=== PATIENT | male | born 1960 | race Asian ===

== ENCOUNTER 2016-07-31 04:31 | Emergency (ER) | payer SELFPAY ==
[~2016-07-31] VITALS: Ht 182.9 cm; Wt 100.0 kg
[~2016-07-31 04:31] MED LIST: ALLO100T PO; VIC PO
[2016-07-31 04:41] VITALS: BP 144/98
[2016-07-31] MEDS ORDERED: CEFTRIAXONE SODIUM 1 G/VIAL IM ONE (04:45)
[2016-07-31] MEDS ORDERED: LIDOCAINE HCL 1% 20ML VIAL (Pyxis) INJ MC ONE (04:45)
== END 2016-07-31 05:00 | disposition home or self-care (01) ==
LOC: ER 04:34
DX: J02.9 Acute pharyngitis, unspecified (principal); I10 Essential (primary) hypertension; I25.10 Atherosclerotic heart disease of native coronary artery without angina pectoris; F17.210 Nicotine dependence, cigarettes, uncomplicated; M10.9 Gout, unspecified; Z95.5 Presence of coronary angioplasty implant and graft
CPT/HCPCS: 99283

== ENCOUNTER 2017-04-02 05:14 | Inpatient (IN) | payer SELFPAY ==
[~2017-04-02] VITALS: Ht 182.9 cm; Wt 99.8 kg
[2017-04-02] MEDS ORDERED: FUROSEMIDE 40MG/4ML VIAL IV STA (06:27)
[2017-04-02] MEDS ORDERED: NITROGLYCERIN OINT 1GM/INCH UDPKT TD STA (06:27)
[2017-04-02 07:03] LABS: HEMATOCRIT. 51.4 % (42.0-52.0); HEMOGLOBIN. 17.3 g/dL (14.0-18.0); MEAN CORPUSCULAR HEMOGLOBIN 30.8 pg (28.0-32.0); MEAN CORPUSCULAR VOLUME 91.8 fL (80.0-94.0); RED CELL DISTRIBUTION WIDTH 14.1 % (11.6-14.6)
[2017-04-02 07:09] LABS: PROTHROMBIN TIME 10.7 sec (9.4-11.6)
[2017-04-02 07:13] LABS: CHLORIDE 109 mEq/L (98-107)
[2017-04-02] MEDS ORDERED: LEVOFLOXACIN 750MG PREMIX 150 ML IV ONE (07:15)
[2017-04-02 07:18] LABS: TROPONIN I <0.01 ng/mL ng/mL (0.00-0.04)
[2017-04-02] MEDS ORDERED: SODIUM CHLORIDE 0.9% 500 ML IV ONE (07:58)
[2017-04-02 08:26] LABS: PLATELET ESTIMATE NORMAL
[2017-04-02 08:27] LABS: MEAN PLATELET VOLUME 9.9 fl (7.4-10.4); PLATELET 149 x1000/uL (130-400)
[2017-04-02 12:30] VITALS: BP_SYST 101; BP_SYST 112; BP_DIAS 67; BP_DIAS 78
[2017-04-02 12:46] VITALS: BP 112/75
[2017-04-02] MEDS ORDERED: ONDANSETRON HCL 4MG/2ML VIAL IV PRN (13:00)
[2017-04-02] MEDS ORDERED: CLONIDINE 0.1MG TABLET PO PRN (13:00)
[2017-04-02] MEDS ORDERED: IPRATROPIUM/ALBUTEROL 0.5-3(2.5)MG/3ML NEB INH PRN (13:00)
[2017-04-02] MEDS ORDERED: DOCUSATE SODIUM 100MG CAPSULE PO PRN (13:00)
[2017-04-02] MEDS ORDERED: DIPHENHYDRAMINE 50MG/ML VIAL IV PRN (13:00)
[2017-04-02] MEDS ORDERED: NA PHOS,M-B/NA PHOS,DI-BA ENEMA 118ML PR PRN (13:00)
[2017-04-02] MEDS ORDERED: MAGNESIUM/ALUMINUM HYDROXIDE/SIMETHICONE 30ML UDC PO PRN (13:00)
[2017-04-02] MEDS ORDERED: GUAIFENESIN 200MG/10ML SUGAR FREE UDC PO PRN (13:00)
[2017-04-02] MEDS ORDERED: ACETAMINOPHEN 325MG TABLET PO PRN (13:00)
[2017-04-02] MEDS ORDERED: KETOROLAC 15MG/ML VIAL IV PRN (13:15)
[2017-04-02] MEDS: ASCORBIC ACID 500 MG TABLET PO SCH ×2 (14:53→21:26)
[2017-04-02] MEDS: PANTOPRAZOLE SODIUM 40 MG/VIAL IV SCH (14:53)
[2017-04-02] MEDS: ENOXAPARIN 40MG/0.4ML SYR SUBCUT SCH (14:53)
[2017-04-02] MEDS ORDERED: PRAS10TA6 PO (16:27)
[2017-04-02] MEDS ORDERED: FURO-151 PO (16:27)
[2017-04-02] MEDS ORDERED: COLC0.6T66 PO (16:27)
[2017-04-02] MEDS ORDERED: ATOR-2 PO (16:27)
[2017-04-02] MEDS ORDERED: ASPI-1159 PO (16:27)
[2017-04-02 16:39] VITALS: BP 121/74
[2017-04-02] MEDS ORDERED: PNEUMOCOCCAL 23-VAL P-SAC VAC 0.5 ML IM ONE (17:15)
[2017-04-02 17:22] LABS: *AMPHETAMINES SCREEN URINE PRESUMTIVE POSITIVE (NEGATIVE); *BARBITURATES SCREEN URINE NEGATIVE (NEGATIVE); *BENZODIAZEPINES SCREEN URINE NEGATIVE (NEGATIVE); *COCAINE SCREEN URINE NEGATIVE (NEGATIVE); METHADONE URINE SCREEN NEGATIVE (NEGATIVE)
[2017-04-02 17:23] LABS: CANNABINOID URINE SCREEN NEGATIVE (NEGATIVE); OPIATES URINE SCREEN NEGATIVE (NEGATIVE); PHENCYCLIDINE URINE SCREEN NEGATIVE (NEGATIVE)
[2017-04-02] MEDS: SPIRONOLACTONE 25MG TABLET PO SCH (18:09)
[2017-04-02] MEDS: FUROSEMIDE 100MG/10ML VIAL IVP SCH (18:09)
[2017-04-02 20:39] VITALS: BP 128/87
[2017-04-02] MEDS ORDERED: ZOLPIDEM TARTRATE 5MG TABLET PO PRN (21:00)
[2017-04-03 00:15] VITALS: BP 111/60
[2017-04-03 01:03] LABS: CREATINE KINASE MB FRACTION 4.6 ng/mL (0.5-3.6); TROPONIN I 0.04 ng/mL (0.00-0.04)
[2017-04-03 04:42] VITALS: BP 145/83
[2017-04-03] MEDS: FUROSEMIDE 100MG/10ML VIAL IVP SCH (06:31)
[2017-04-03] MEDS: SPIRONOLACTONE 25MG TABLET PO SCH (06:39)
[2017-04-03] MEDS ORDERED: LEVOFLOXACIN 750MG PREMIX 150 ML IV SCH (07:00)
[2017-04-03 08:00] VITALS: BP 111/72
[2017-04-03 08:08] LABS: CHLORIDE 105 mEq/L (98-107)
[2017-04-03] MEDS: PANTOPRAZOLE SODIUM 40 MG/VIAL IV SCH (09:30)
[2017-04-03] MEDS: ASCORBIC ACID 500 MG TABLET PO SCH (09:30)
[2017-04-03 12:00] VITALS: BP 107/72
[2017-04-03] MEDS: ENOXAPARIN 40MG/0.4ML SYR SUBCUT SCH (13:00)
[2017-04-03 13:17] VITALS: BP 112/77
== END 2017-04-03 15:30 | disposition home or self-care (01) | DRG 720 ==
LOC: ER 05:25 → 5WST 07:56 → EDBEDREQ 08:02 → ENRESERV 10:58
PROVIDERS: ADMIT Internal Medicine; ATTEND Internal Medicine
DX: A41.9 Sepsis, unspecified organism (principal); N17.9 Acute kidney failure, unspecified; I11.0 Hypertensive heart disease with heart failure; J18.9 Pneumonia, unspecified organism; I50.40 Unspecified combined systolic (congestive) and diastolic (congestive) heart failure; F15.10 Other stimulant abuse, uncomplicated; E78.00 Pure hypercholesterolemia, unspecified; M10.9 Gout, unspecified; K59.00 Constipation, unspecified; F17.210 Nicotine dependence, cigarettes, uncomplicated; I25.10 Atherosclerotic heart disease of native coronary artery without angina pectoris; I25.2 Old myocardial infarction; Z95.5 Presence of coronary angioplasty implant and graft; Z79.899 Other long term (current) drug therapy; Z71.51 Drug abuse counseling and surveillance of drug abuser
CPT/HCPCS: 36415; 71045; 80053; 80061; 80305; 82550; 82553; 83036; 83605; 83690; 83880; 84145; 84484; 85025; 85610; 87040; 93005; 93970; 96365; 96366; 96375; 99291; C9113; J1650; J1940; J1956; J7030; J7050

== ENCOUNTER 2019-03-10 14:19 | Inpatient (IN) | payer MEDICAID, OTHER ==
[~2019-03-10] VITALS: Ht 160 cm; Wt 94.3 kg
[~2019-03-10 14:19] MED LIST changes: -ALLO100T PO; +ASPI-1497 PO; +ATOR-2 PO; +COLC0.6T66 PO; +FURO-151 PO; +PRAS10TA6 PO; -VIC PO
[2019-03-10] MEDS ORDERED: NITROGLYCERIN OINT 1GM/INCH UDPKT TD ONE (15:00)
[2019-03-10] MEDS ORDERED: FUROSEMIDE 100MG/10ML VIAL IVP ONE (15:00)
[2019-03-10] MEDS ORDERED: ASPIRIN 81MG TABLET PO ONE (15:00)
[2019-03-10 15:31] LABS: BG BASE EXCESS -4.6 mmol/L (-2.0-2.0); BG CARBOXYHEMOGLOBIN 1.2 % (0.5-1.5); BG DEOXYHEMOGLOBIN 12.5 % (0.0-5.0); BG FRACTION INSPIRED OXYGEN 21; BG HCO3 ACT 17.2 mmol/L (22.0-26.0); BG METHEMOGLOBIN 0.1 % (0.0-1.5); BG OXYGEN SATURATION 87.3 % (92.0-98.5); BG OXYHEMOGLOBIN 86.2 % (94.0-97.0); BG PH 7.455 (7.350-7.450); BG PO2 51.2 mmHg (75.0-100.0); BG SAMPLE SITE RIGHT BRACHIAL; BG TOTAL HEMOGLOBIN 16.1 g/dL (12.0-18.0); BG VENT MODE ROOM AIR
[2019-03-10 15:52] LABS: BASOPHILS % 1.4 % (0.0-2.0); EOSINOPHILS % 1.6 % (0.0-5.0); HEMATOCRIT. 48.9 % (42.0-52.0); HEMOGLOBIN. 15.8 g/dL (14.0-18.0); LYMPHOCYTES % 13.3 % (20.0-50.0); MEAN CORPUSCULAR HEMOGLOBIN 30.8 pg (28.0-32.0); MEAN PLATELET VOLUME 10.5 fl (7.4-10.4); MONOCYTES % 11.2 % (2.0-8.0); NEUTROPHILS % 72.5 % (40.0-76.0); PLATELET 112 x1000/uL (130-400); RED BLOOD CELL COUNT 5.15 mill/uL (4.7-6.1); RED CELL DISTRIBUTION WIDTH 14.3 % (11.6-14.6)
[2019-03-10 15:56] LABS: CHLORIDE 114 mEq/L (98-107)
[2019-03-10 15:59] LABS: INR 1.3; PARTIAL THROMBOPLASTIN TIME 27.8 sec (23.4-31.0); PROTHROMBIN TIME 12.9 sec (9.6-11.0)
[2019-03-10] MEDS ORDERED: ONDANSETRON HCL 4MG/2ML INJ IV PRN (20:30)
[2019-03-10] MEDS ORDERED: DIPHENHYDRAMINE 50MG/ML VIAL IV PRN (20:30)
[2019-03-10] MEDS ORDERED: IPRATROPIUM/ALBUTEROL 0.5-3(2.5)MG/3ML NEB HHN PRN (20:30)
[2019-03-10] MEDS ORDERED: MAGNESIUM/ALUMINUM HYDROXIDE/SIMETHICONE 30ML UDC PO PRN (20:30)
[2019-03-10] MEDS ORDERED: NA PHOS,M-B/NA PHOS,DI-BA ENEMA 118ML PR PRN (20:30)
[2019-03-10] MEDS ORDERED: ACETAMINOPHEN 325MG TABLET PO PRN (20:30)
[2019-03-10] MEDS ORDERED: CLONIDINE 0.1MG TABLET PO PRN (20:30)
[2019-03-10] MEDS ORDERED: DOCUSATE SODIUM 100MG CAPSULE PO PRN (20:30)
[2019-03-10] MEDS ORDERED: ACETAMINOPHEN 650MG/20.3ML UDC GT PRN (20:30)
[2019-03-10] MEDS ORDERED: ACETAMINOPHEN 650MG SUPP PR PRN (20:30)
[2019-03-10] MEDS ORDERED: GUAIFENESIN 200MG/10ML SUGAR FREE UDC PO PRN (20:30)
[2019-03-10] MEDS: HYDROCODONE/ACETAMINOPHEN 10/325MG TABLET PO PRN (22:53)
[2019-03-11] VITALS (7 sets, daily range): BP systolic 103–143; BP diastolic 65–91
[2019-03-11 02:27] LABS: CREATINE KINASE MB FRACTION 4.6 ng/mL (0.5-3.6)
[2019-03-11] MEDS: SODIUM CHLORIDE 0.9% INJ 3ML FLUSH IVF SCH ×3 (06:55→21:41)
[2019-03-11 07:21] LABS: BASOPHILS % 1.3 % (0.0-2.0); EOSINOPHILS % 2.1 % (0.0-5.0); HEMOGLOBIN. 15.7 g/dL (14.0-18.0); LYMPHOCYTES % 18.6 % (20.0-50.0); MEAN CORPUSCULAR HEMOGLOBIN 31.4 pg (28.0-32.0); MONOCYTES % 10.2 % (2.0-8.0); NEUTROPHILS % 67.8 % (40.0-76.0); PLATELET 107 x1000/uL (130-400); RED CELL DISTRIBUTION WIDTH 14.3 % (11.6-14.6)
[2019-03-11 07:34] LABS: CHLORIDE 113 mEq/L (98-107)
[2019-03-11 07:49] LABS: CREATINE KINASE MB FRACTION 4.7 ng/mL (0.5-3.6)
[2019-03-11 07:57] LABS: LDL CHOLESTEROL 85 mg/dL (5-100)
[2019-03-11 07:58] LABS: HDL CHOLESTEROL 27 mg/dL (40-59)
[2019-03-11] MEDS ORDERED: ENOXAPARIN 40MG/0.4ML SYR SUBCUT SCH (09:00)
[2019-03-11] MEDS: AMLODIPINE 10MG TABLET PO SCH (10:03)
[2019-03-11] MEDS: ASPIRIN 81MG EC TABLET PO SCH (10:03)
[2019-03-11] MEDS: FUROSEMIDE 40MG/4ML VIAL IV SCH ×2 (10:03→17:18)
[2019-03-11 10:48] LABS: T4 FREE 1.78 ng/dL (0.76-1.46)
[2019-03-11] MEDS ORDERED: ENOXAPARIN 40MG/0.4ML SYR SUBCUT NR (13:30)
[2019-03-11] MEDS: PIPERACILLIN/TAZOBACTAM 2.25 G in DEXTROSE 5% WATER 50 ML IV SCH ×2 (17:18→23:03)
[2019-03-11] MEDS: ENOXAPARIN 80MG/0.8ML SYR SUBCUT SCH (21:40)
[2019-03-11] MEDS: HYDROCODONE/ACETAMINOPHEN 10/325MG TABLET PO PRN (22:18)
[2019-03-12 00:31] VITALS: BP 109/66
[2019-03-12 04:00] VITALS: BP 102/69
[2019-03-12] MEDS: SODIUM CHLORIDE 0.9% INJ 3ML FLUSH IVF SCH ×3 (05:20→21:23)
[2019-03-12 08:00] VITALS: BP 117/72
[2019-03-12] MEDS: PIPERACILLIN/TAZOBACTAM 2.25 G in DEXTROSE 5% WATER 50 ML IV SCH ×2 (08:51→16:59)
[2019-03-12] MEDS: FUROSEMIDE 40MG/4ML VIAL IV SCH ×2 (08:51→16:59)
[2019-03-12] MEDS: AMLODIPINE 10MG TABLET PO SCH (08:52)
[2019-03-12] MEDS: ASPIRIN 81MG EC TABLET PO SCH (08:52)
[2019-03-12] MEDS: ENOXAPARIN 80MG/0.8ML SYR SUBCUT SCH (08:53)
[2019-03-12 12:10] VITALS: BP 130/76
[2019-03-12] MEDS: COLCHICINE 0.6MG TABLET PO SCH ×2 (12:26→21:23)
[2019-03-12] MEDS: HYDROCODONE/ACETAMINOPHEN 10/325MG TABLET PO PRN (14:39)
[2019-03-12 16:30] VITALS: BP 100/64
[2019-03-12] MEDS: LOSARTAN POTASSIUM 50 MG TABLET PO SCH (17:01)
[2019-03-12 20:48] VITALS: BP 97/60
[2019-03-12] MEDS: CARVEDILOL 3.125 MG TABLET PO SCH (21:00)
[2019-03-12] MEDS: ENOXAPARIN 100MG/ML SYR SUBCUT SCH (21:24)
[2019-03-13] VITALS (10 sets, daily range): BP systolic 77–106; BP diastolic 43–67
[2019-03-13 00:31] LABS: BASOPHILS % 1.1 % (0.0-2.0); EOSINOPHILS % 0.8 % (0.0-5.0); HEMATOCRIT. 48.3 % (42.0-52.0); HEMOGLOBIN. 16.1 g/dL (14.0-18.0); LYMPHOCYTES % 13.7 % (20.0-50.0); MEAN CORPUSCULAR HEMOGLOBIN 30.9 pg (28.0-32.0); MEAN CORPUSCULAR VOLUME 92.6 fL (80.0-94.0); MEAN PLATELET VOLUME 10.6 fl (7.4-10.4); MONOCYTES % 10.7 % (2.0-8.0); NEUTROPHILS % 73.7 % (40.0-76.0); PLATELET 122 x1000/uL (130-400); RED BLOOD CELL COUNT 5.22 mill/uL (4.7-6.1); RED CELL DISTRIBUTION WIDTH 13.7 % (11.6-14.6)
[2019-03-13] MEDS: PIPERACILLIN/TAZOBACTAM 2.25 G in DEXTROSE 5% WATER 50 ML IV SCH ×3 (00:37→15:33)
[2019-03-13 00:43] LABS: CHLORIDE 103 mEq/L (98-107)
[2019-03-13] MEDS: SODIUM CHLORIDE 0.9% INJ 3ML FLUSH IVF SCH ×3 (05:34→21:38)
[2019-03-13 06:41] LABS: BASOPHILS % 0.7 % (0.0-2.0); HEMATOCRIT. 48.1 % (42.0-52.0); HEMOGLOBIN. 15.9 g/dL (14.0-18.0); LYMPHOCYTES % 14.9 % (20.0-50.0); MEAN CORPUSCULAR HEMOGLOBIN 30.7 pg (28.0-32.0); MEAN CORPUSCULAR VOLUME 93.1 fL (80.0-94.0); MEAN PLATELET VOLUME 11.1 fl (7.4-10.4); MONOCYTES % 12.9 % (2.0-8.0); NEUTROPHILS % 70.5 % (40.0-76.0); PLATELET 123 x1000/uL (130-400); RED BLOOD CELL COUNT 5.16 mill/uL (4.7-6.1); RED CELL DISTRIBUTION WIDTH 14.1 % (11.6-14.6)
[2019-03-13] MEDS: COLCHICINE 0.6MG TABLET PO SCH ×2 (08:10→21:38)
[2019-03-13] MEDS: ASPIRIN 81MG EC TABLET PO SCH (08:11)
[2019-03-13] MEDS: FUROSEMIDE 40MG/4ML VIAL IV SCH ×3 (08:12→09:00)
[2019-03-13] MEDS: CARVEDILOL 3.125 MG TABLET PO SCH (08:31)
[2019-03-13] MEDS: LOSARTAN POTASSIUM 50 MG TABLET PO SCH (08:33)
[2019-03-13] MEDS: AMLODIPINE 10MG TABLET PO SCH (08:33)
[2019-03-13] MEDS: ENOXAPARIN 100MG/ML SYR SUBCUT SCH ×2 (08:40→21:38)
[2019-03-13] MEDS ORDERED: POTASSIUM CHLORIDE 20MEQ TABLET SR PO NR (11:15)
[2019-03-13] MEDS ORDERED: COLC0.6T66 PO (12:05)
[2019-03-13] MEDS ORDERED: ASPI-1497 PO (12:05)
[2019-03-13] MEDS ORDERED: FURO-151 PO (12:05)
[2019-03-13] MEDS ORDERED: ATOR-2 PO (12:05)
[2019-03-13 12:24] LABS: BG BASE EXCESS 3.1 mmol/L (-2.0-2.0); BG DEOXYHEMOGLOBIN 4.2 % (0.0-5.0); BG FRACTION INSPIRED OXYGEN 28; BG HCO3 ACT 25.3 mmol/L (22.0-26.0); BG METHEMOGLOBIN 0.2 % (0.0-1.5); BG OXYGEN SATURATION 95.7 % (92.0-98.5); BG OXYHEMOGLOBIN 93.6 % (94.0-97.0); BG PCO2 32.1 mmHg (35.0-45.0); BG PH 7.515 (7.350-7.450); BG PO2 74.8 mmHg (75.0-100.0); BG SAMPLE SITE RIGHT RADIAL; BG TOTAL HEMOGLOBIN 15.8 g/dL (12.0-18.0); BG VENT MODE NASAL CANNULA
[2019-03-13 16:31] LABS: CLARITY URINE CLEAR (CLEAR); COLOR URINE DARK YELLOW (YELLOW); KETONES URINE NEGATIVE (NEGATIVE); LEUKOCYTE ESTERASE URINE NEGATIVE (NEGATIVE); NITRITE URINE NEGATIVE (NEGATIVE); OCCULT BLOOD URINE 2+ (NEGATIVE); PH URINE 6.5 (4.5-8.0); PROTEIN URINE TRACE (NEGATIVE); SPECIFIC GRAVITY URINE 1.024 (1.005-1.030)
[2019-03-14] MEDS: PIPERACILLIN/TAZOBACTAM 2.25 G in DEXTROSE 5% WATER 50 ML IV SCH ×2 (00:13→08:25)
[2019-03-14 00:29] VITALS: BP 99/51
[2019-03-14 04:00] VITALS: BP 96/55
[2019-03-14] MEDS: SODIUM CHLORIDE 0.9% INJ 3ML FLUSH IVF SCH (06:15)
[2019-03-14 08:00] VITALS: BP 100/50
[2019-03-14] MEDS: ASPIRIN 81MG EC TABLET PO SCH (08:25)
[2019-03-14] MEDS: ENOXAPARIN 100MG/ML SYR SUBCUT SCH (08:25)
[2019-03-14] MEDS: COLCHICINE 0.6MG TABLET PO SCH (08:25)
[2019-03-14 12:00] VITALS: BP 120/60
[2019-03-14 14:21] VITALS: BP 120/60
[2019-04-26] MEDS ORDERED: COR12 PO (10:12)
[2019-04-26] MEDS ORDERED: APIX2.5T PO (10:12)
[2019-06-09] MEDS ORDERED: LOSA50TA3 PO (12:04)
[2019-06-09] MEDS ORDERED: FURO-151 MT (12:04)
[2019-06-09] MEDS ORDERED: COR12 PO (12:04)
[2019-06-09] MEDS ORDERED: ATOR-2 PO (12:04)
[2019-06-09] MEDS ORDERED: POTA-79 MT (12:04)
[2019-06-09] MEDS ORDERED: APIX2.5T PO (12:04)
[2019-06-09] MEDS ORDERED: ASPI-1497 PO (12:04)
[2019-06-09] MEDS ORDERED: LOSA25TA26 MT (12:12)
[2019-06-09] MEDS ORDERED: AMI2 PO (16:14)
== END 2019-03-14 15:16 | disposition home or self-care (01) | DRG 194 ==
LOC: ER 14:19 → EDBEDREQ 18:56 → 6WST 19:39 → ENRESERV 21:04
PROVIDERS: ADMIT Family Medicine; ATTEND Family Medicine
DX: I11.0 Hypertensive heart disease with heart failure (principal); J96.01 Acute respiratory failure with hypoxia; G93.41 Metabolic encephalopathy; N17.9 Acute kidney failure, unspecified; I95.9 Hypotension, unspecified; J91.8 Pleural effusion in other conditions classified elsewhere; I48.92 Unspecified atrial flutter; L03.115 Cellulitis of right lower limb; I42.9 Cardiomyopathy, unspecified; I48.91 Unspecified atrial fibrillation; L03.116 Cellulitis of left lower limb; I50.43 Acute on chronic combined systolic (congestive) and diastolic (congestive) heart failure; E78.5 Hyperlipidemia, unspecified; I25.10 Atherosclerotic heart disease of native coronary artery without angina pectoris; I87.2 Venous insufficiency (chronic) (peripheral); S80.812A Abrasion, left lower leg, initial encounter; X58.XXXA Exposure to other specified factors, initial encounter; M10.9 Gout, unspecified; E78.00 Pure hypercholesterolemia, unspecified; E80.6 Other disorders of bilirubin metabolism; Z82.49 Family history of ischemic heart disease and other diseases of the circulatory system; Z87.891 Personal history of nicotine dependence; Z91.14 Patient's other noncompliance with medication regimen; Z95.5 Presence of coronary angioplasty implant and graft; Z79.82 Long term (current) use of aspirin; I25.2 Old myocardial infarction; Z79.899 Other long term (current) drug therapy; Z86.73 Personal history of transient ischemic attack (TIA), and cerebral infarction without residual deficits; Y93.89 Activity, other specified; Y92.89 Other specified places as the place of occurrence of the external cause; Y99.8 Other external cause status
CPT/HCPCS: 36415; 36600; 71045; 73610; 73630; 80048; 80053; 80061; 81003; 82375; 82550; 82553; 82805; 82962; 83036; 83605; 83735; 83880; 84145; 84439; 84443; 84484; 84550; 85025; 85379; 87070; 87804; 93005; 93306; 93923; 93970; 96374; 97162; 97530; 99285; J1650; J1940; J2543; J7060

== ENCOUNTER 2019-05-22 14:23 | Inpatient (IN) | payer MEDICAID, OTHER ==
[~2019-05-22] VITALS: Ht 182.9 cm; Wt 98.5 kg
[~2019-05-22 14:23] MED LIST changes: +APIX2.5T PO; -COLC0.6T66 PO; +COR12 PO; -PRAS10TA6 PO
[2019-05-22] MEDS ORDERED: FUROSEMIDE 40MG/4ML VIAL IV ONE (15:45)
[2019-05-22] MEDS ORDERED: ASPIRIN 81MG TABLET PO ONE (15:45)
[2019-05-22] MEDS ORDERED: NITROGLYCERIN 0.4MG TABLET SL SL PRN (15:45)
[2019-05-22 16:13] LABS: BASOPHILS % 0.5 % (0.0-2.0); EOSINOPHILS % 1.1 % (0.0-5.0); HEMATOCRIT. 48.4 % (42.0-52.0); HEMOGLOBIN. 15.8 g/dL (14.0-18.0); LYMPHOCYTES % 20.8 % (20.0-50.0); MEAN CORPUSCULAR HEMOGLOBIN 29.9 pg (28.0-32.0); MEAN CORPUSCULAR VOLUME 91.4 fL (80.0-94.0); MEAN PLATELET VOLUME 10.6 fl (7.4-10.4); MONOCYTES % 10.5 % (2.0-8.0); NEUTROPHILS % 67.1 % (40.0-76.0); PLATELET 110 x1000/uL (130-400); RED CELL DISTRIBUTION WIDTH 16.5 % (11.6-14.6)
[2019-05-22 16:16] LABS: CHLORIDE 108 mEq/L (98-107)
[2019-05-23 05:00] VITALS: BP 137/98
[2019-05-23] MEDS ORDERED: MAGNESIUM/ALUMINUM HYDROXIDE/SIMETHICONE 30ML UDC PO PRN (07:15)
[2019-05-23] MEDS ORDERED: CLONIDINE 0.1MG TABLET PO PRN (07:15)
[2019-05-23] MEDS ORDERED: ONDANSETRON HCL 4MG/2ML INJ IV PRN (07:15)
[2019-05-23] MEDS ORDERED: ACETAMINOPHEN 325MG TABLET PO PRN (07:15)
[2019-05-23 08:00] VITALS: BP 131/86
[2019-05-23] MEDS ORDERED: APIXABAN 5 MG TABLET PO SCH (09:00)
[2019-05-23] MEDS ORDERED: FUROSEMIDE 40MG/4ML VIAL IV SCH ×2 (09:00→17:15)
[2019-05-23] MEDS ORDERED: CARVEDILOL 6.25 MG TABLET PO SCH (09:00)
[2019-05-23 12:00] VITALS: BP 107/75
[2019-05-23 16:00] VITALS: BP 103/63
[2019-05-23 16:03] LABS: CREATINE KINASE MB FRACTION 4.8 ng/mL (0.5-3.6)
[2019-05-23 18:58] LABS: *AMPHETAMINES SCREEN URINE NEGATIVE (NEGATIVE); *BARBITURATES SCREEN URINE NEGATIVE (NEGATIVE); *BENZODIAZEPINES SCREEN URINE NEGATIVE (NEGATIVE); *COCAINE SCREEN URINE NEGATIVE (NEGATIVE); METHADONE URINE SCREEN NEGATIVE (NEGATIVE); OPIATES URINE SCREEN NEGATIVE (NEGATIVE)
[2019-05-23 18:59] LABS: CANNABINOID URINE SCREEN NEGATIVE (NEGATIVE); PHENCYCLIDINE URINE SCREEN NEGATIVE (NEGATIVE)
[2019-05-23 20:00] VITALS: BP 119/88
[2019-05-23] MEDS: CARVEDILOL 12.5MG TABLET PO SCH (20:33)
[2019-05-23] MEDS: ATORVASTATIN CALCIUM 40MG TABLET PO SCH (20:33)
[2019-05-23] MEDS: ENOXAPARIN 80MG/0.8ML SYR SUBCUT SCH (20:34)
[2019-05-23 22:15] VITALS: BP 102/60
[2019-05-24] VITALS (7 sets, daily range): BP systolic 85–125; BP diastolic 55–71
[2019-05-24 00:34] LABS: CREATINE KINASE 157 IU/L (39-308)
[2019-05-24 00:36] LABS: CREATINE KINASE MB FRACTION 4.6 ng/mL (0.5-3.6)
[2019-05-24] MEDS: MORPHINE SULFATE 2 MG/ML CPJ (NOT FOR IM USE) IV PRN (03:21)
[2019-05-24] MEDS: HYDROCODONE/ACETAMINOPHEN 5/325MG TABLET PO PRN (04:20)
[2019-05-24 05:52] LABS: BASOPHILS % 1.2 % (0.0-2.0); EOSINOPHILS % 1.9 % (0.0-5.0); HEMATOCRIT. 44.9 % (42.0-52.0); HEMOGLOBIN. 15.1 g/dL (14.0-18.0); INR 1.2; LYMPHOCYTES % 16.3 % (20.0-50.0); MEAN CORPUSCULAR HEMOGLOBIN 30.4 pg (28.0-32.0); MEAN CORPUSCULAR VOLUME 90.5 fL (80.0-94.0); MONOCYTES % 10.7 % (2.0-8.0); NEUTROPHILS % 69.9 % (40.0-76.0); PROTHROMBIN TIME 13.4 sec (9.6-11.0); RED BLOOD CELL COUNT 4.97 mill/uL (4.7-6.1); RED CELL DISTRIBUTION WIDTH 15.9 % (11.6-14.6)
[2019-05-24 05:58] LABS: CHLORIDE 108 mEq/L (98-107)
[2019-05-24 06:28] LABS: VITAMIN B12 SERUM 578 pg/mL (211-911)
[2019-05-24 07:24] LABS: MEAN PLATELET VOLUME 10.9 fl (7.4-10.4); PLATELET 97 x1000/uL (130-400)
[2019-05-24] MEDS: CARVEDILOL 12.5MG TABLET PO SCH (08:19)
[2019-05-24] MEDS: FUROSEMIDE 40MG/4ML VIAL IV SCH (10:13)
[2019-05-24] MEDS: ENOXAPARIN 80MG/0.8ML SYR SUBCUT SCH ×2 (10:14→20:59)
[2019-05-24] MEDS: CARVEDILOL 6.25 MG TABLET PO SCH (20:58)
[2019-05-24] MEDS: ATORVASTATIN CALCIUM 40MG TABLET PO SCH (20:58)
[2019-05-25] VITALS: BP 93/72
[2019-05-25 03:55] VITALS: BP 101/63
[2019-05-25 08:00] VITALS: BP 106/60
[2019-05-25] MEDS: ENOXAPARIN 80MG/0.8ML SYR SUBCUT SCH ×2 (08:06→21:44)
[2019-05-25] MEDS: FUROSEMIDE 40MG/4ML VIAL IV SCH (09:09)
[2019-05-25] MEDS: CARVEDILOL 6.25 MG TABLET PO SCH ×2 (09:09→21:42)
[2019-05-25] MEDS: MORPHINE SULFATE 2 MG/ML CPJ (NOT FOR IM USE) IV PRN ×3 (10:35→22:02)
[2019-05-25 12:00] VITALS: BP 100/55
[2019-05-25 16:00] VITALS: BP 106/73
[2019-05-25 20:00] VITALS: BP 122/62
[2019-05-25] MEDS: ATORVASTATIN CALCIUM 40MG TABLET PO SCH (21:42)
[2019-05-26] VITALS (8 sets, daily range): BP systolic 0–141; BP diastolic 60–80
[2019-05-26] MEDS: CARVEDILOL 6.25 MG TABLET PO SCH (09:19)
[2019-05-26] MEDS: FUROSEMIDE 40MG/4ML VIAL IV SCH (09:19)
[2019-05-26] MEDS: ENOXAPARIN 80MG/0.8ML SYR SUBCUT SCH ×2 (09:19→21:02)
[2019-05-26] MEDS: ASPIRIN 81MG TABLET PO SCH (11:30)
[2019-05-26] MEDS ORDERED: METOLAZONE 10MG TABLET PO NR (13:49)
[2019-05-26] MEDS ORDERED: FUROSEMIDE 100MG/10ML VIAL IVP NR (14:30)
[2019-05-26] MEDS: AMIODARONE HCL 200 MG TABLET PO SCH ×2 (15:40→20:50)
[2019-05-26] MEDS: HYDROCODONE/ACETAMINOPHEN 5/325MG TABLET PO PRN ×2 (17:16→20:50)
[2019-05-26] MEDS: ATORVASTATIN CALCIUM 40MG TABLET PO SCH (20:50)
[2019-05-26] MEDS: CARVEDILOL 3.125 MG TABLET PO SCH (20:51)
[2019-05-27] VITALS (7 sets, daily range): BP systolic 0–105; BP diastolic 46–72
[2019-05-27] MEDS: MORPHINE SULFATE 2 MG/ML CPJ (NOT FOR IM USE) IV PRN (02:14)
[2019-05-27] MEDS: HYDROCODONE/ACETAMINOPHEN 5/325MG TABLET PO PRN (05:32)
[2019-05-27] MEDS: ENOXAPARIN 80MG/0.8ML SYR SUBCUT SCH (09:00)
[2019-05-27] MEDS: AMIODARONE HCL 200 MG TABLET PO SCH ×2 (09:14→21:00)
[2019-05-27] MEDS: FUROSEMIDE 40MG/4ML VIAL IV SCH ×2 (09:14→17:02)
[2019-05-27] MEDS: CARVEDILOL 3.125 MG TABLET PO SCH ×2 (09:14→20:55)
[2019-05-27] MEDS: ASPIRIN 81MG TABLET PO SCH (09:29)
[2019-05-27 13:39] LABS: BASOPHILS % 0.4 % (0.0-2.0); EOSINOPHILS % 0.3 % (0.0-5.0); HEMATOCRIT. 44.2 % (42.0-52.0); HEMOGLOBIN. 14.7 g/dL (14.0-18.0); LYMPHOCYTES % 11.4 % (20.0-50.0); MEAN CORPUSCULAR HEMOGLOBIN 30.2 pg (28.0-32.0); MEAN CORPUSCULAR VOLUME 91.2 fL (80.0-94.0); MEAN PLATELET VOLUME 10.9 fl (7.4-10.4); MONOCYTES % 11.7 % (2.0-8.0); NEUTROPHILS % 76.2 % (40.0-76.0); PLATELET 76 x1000/uL (130-400); RED BLOOD CELL COUNT 4.85 mill/uL (4.7-6.1); RED CELL DISTRIBUTION WIDTH 16.5 % (11.6-14.6)
[2019-05-27] MEDS ORDERED: POTASSIUM CHLORIDE 20MEQ TABLET SR PO NR (14:15)
[2019-05-27] MEDS: ATORVASTATIN CALCIUM 40MG TABLET PO SCH (20:55)
[2019-05-28] VITALS: BP 93/63
[2019-05-28] MEDS: HYDROCODONE/ACETAMINOPHEN 5/325MG TABLET PO PRN (02:28)
[2019-05-28 04:00] VITALS: BP 81/50
[2019-05-28] MEDS: FUROSEMIDE 40MG/4ML VIAL IV SCH ×2 (07:15→17:15)
[2019-05-28 07:29] LABS: BASOPHILS % 0.5 % (0.0-2.0); EOSINOPHILS % 0.5 % (0.0-5.0); HEMATOCRIT. 40.2 % (42.0-52.0); HEMOGLOBIN. 13.5 g/dL (14.0-18.0); LYMPHOCYTES % 13.4 % (20.0-50.0); MEAN CORPUSCULAR HEMOGLOBIN 30.5 pg (28.0-32.0); MEAN CORPUSCULAR VOLUME 90.7 fL (80.0-94.0); MEAN PLATELET VOLUME 11.1 fl (7.4-10.4); MONOCYTES % 10.7 % (2.0-8.0); NEUTROPHILS % 74.9 % (40.0-76.0); PLATELET 69 x1000/uL (130-400); RED BLOOD CELL COUNT 4.43 mill/uL (4.7-6.1); RED CELL DISTRIBUTION WIDTH 16.3 % (11.6-14.6)
[2019-05-28 08:00] VITALS: BP 91/53
[2019-05-28] MEDS: CARVEDILOL 3.125 MG TABLET PO SCH ×2 (09:00→21:00)
[2019-05-28] MEDS: ASPIRIN 81MG TABLET PO SCH (09:19)
[2019-05-28] MEDS: POTASSIUM CHLORIDE 20MEQ TABLET SR PO SCH (09:19)
[2019-05-28] MEDS: AMIODARONE HCL 200 MG TABLET PO SCH ×2 (09:20→22:02)
[2019-05-28 12:00] VITALS: BP 88/63
[2019-05-28] MEDS ORDERED: COLCHICINE 0.6MG TABLET PO NR (12:15)
[2019-05-28] MEDS ORDERED: ALLOPURINOL 100 MG TABLET PO SCH (12:15)
[2019-05-28 16:00] VITALS: BP 89/58
[2019-05-28 20:00] VITALS: BP 96/62
[2019-05-28] MEDS: ATORVASTATIN CALCIUM 40MG TABLET PO SCH (22:02)
[2019-05-28] MEDS ORDERED: POTASSIUM CHLORIDE 20MEQ/PACKET PO SCH (22:15)
[2019-05-28] MEDS ORDERED: METOLAZONE 10MG TABLET PO SCH (22:15)
[2019-05-29] VITALS (7 sets, daily range): BP systolic 93–126; BP diastolic 41–78
[2019-05-29] MEDS: FUROSEMIDE 40MG/4ML VIAL IV SCH ×2 (06:55→17:40)
[2019-05-29 07:15] LABS: BASOPHILS % 1.1 % (0.0-2.0); EOSINOPHILS % 1.3 % (0.0-5.0); HEMATOCRIT. 44.1 % (42.0-52.0); HEMOGLOBIN. 14.6 g/dL (14.0-18.0); LYMPHOCYTES % 15.2 % (20.0-50.0); MEAN CORPUSCULAR HEMOGLOBIN 30.3 pg (28.0-32.0); MEAN CORPUSCULAR VOLUME 91.5 fL (80.0-94.0); MONOCYTES % 11.6 % (2.0-8.0); NEUTROPHILS % 70.8 % (40.0-76.0); PLATELET 74 x1000/uL (130-400); RED BLOOD CELL COUNT 4.82 mill/uL (4.7-6.1); RED CELL DISTRIBUTION WIDTH 16.4 % (11.6-14.6)
[2019-05-29] MEDS: POTASSIUM CHLORIDE 20MEQ TABLET SR PO SCH ×2 (09:53→17:40)
[2019-05-29] MEDS: ASPIRIN 81MG TABLET PO SCH (09:53)
[2019-05-29] MEDS: AMIODARONE HCL 200 MG TABLET PO SCH ×2 (09:53→21:00)
[2019-05-29] MEDS: CARVEDILOL 3.125 MG TABLET PO SCH ×2 (09:59→21:00)
[2019-05-29] MEDS ORDERED: POTASSIUM CHLORIDE 20MEQ TABLET SR PO NR (14:45)
[2019-05-29] MEDS: ATORVASTATIN CALCIUM 40MG TABLET PO SCH (21:10)
[2019-05-30] VITALS: BP 89/52
[2019-05-30 04:00] VITALS: BP 92/58
[2019-05-30] MEDS: FUROSEMIDE 40MG/4ML VIAL IV SCH (06:49)
[2019-05-30 07:04] LABS: BASOPHILS % 1.1 % (0.0-2.0); EOSINOPHILS % 3.1 % (0.0-5.0); HEMOGLOBIN. 14.4 g/dL (14.0-18.0); LYMPHOCYTES % 15.4 % (20.0-50.0); MEAN CORPUSCULAR HEMOGLOBIN 30.2 pg (28.0-32.0); MEAN CORPUSCULAR VOLUME 90.5 fL (80.0-94.0); MEAN PLATELET VOLUME 11.2 fl (7.4-10.4); MONOCYTES % 14.5 % (2.0-8.0); NEUTROPHILS % 65.9 % (40.0-76.0); PLATELET 76 x1000/uL (130-400); RED BLOOD CELL COUNT 4.75 mill/uL (4.7-6.1); RED CELL DISTRIBUTION WIDTH 16.1 % (11.6-14.6)
[2019-05-30 07:48] LABS: CHLORIDE 96 mEq/L (98-107)
[2019-05-30 08:00] VITALS: BP 97/68
[2019-05-30] MEDS: CARVEDILOL 3.125 MG TABLET PO SCH (08:20)
[2019-05-30] MEDS: POTASSIUM CHLORIDE 20MEQ TABLET SR PO SCH (08:21)
[2019-05-30] MEDS: ASPIRIN 81MG TABLET PO SCH (08:21)
[2019-05-30] MEDS: AMIODARONE HCL 200 MG TABLET PO SCH (08:21)
[2019-05-30] MEDS ORDERED: POTASSIUM CHLORIDE 20MEQ TABLET SR PO NR (10:40)
[2019-05-30 11:41] VITALS: BP 97/68
[2019-05-30 12:00] VITALS: BP 103/61
== END 2019-05-30 14:52 | disposition home or self-care (01) | DRG 194 ==
LOC: ER 14:23 → 5WST 17:52 → EDBEDREQTM 18:26 → EDBEDREQ 18:26 → ENRESERV 05-23 03:31
PROVIDERS: ADMIT Hospitalist; ATTEND Hospitalist
DX: I13.0 Hypertensive heart and chronic kidney disease with heart failure and stage 1 through stage 4 chronic kidney disease, or unspecified chronic kidney disease (principal); I47.2 Ventricular tachycardia; I95.9 Hypotension, unspecified; D68.59 Other primary thrombophilia; D69.6 Thrombocytopenia, unspecified; I48.3 Typical atrial flutter; C64.9 Malignant neoplasm of unspecified kidney, except renal pelvis; I48.91 Unspecified atrial fibrillation; I50.23 Acute on chronic systolic (congestive) heart failure; E78.5 Hyperlipidemia, unspecified; F17.210 Nicotine dependence, cigarettes, uncomplicated; I25.10 Atherosclerotic heart disease of native coronary artery without angina pectoris; I25.5 Ischemic cardiomyopathy; M10.9 Gout, unspecified; N18.9 Chronic kidney disease, unspecified; Z79.899 Other long term (current) drug therapy; Z85.528 Personal history of other malignant neoplasm of kidney; Z90.49 Acquired absence of other specified parts of digestive tract; Z90.5 Acquired absence of kidney; Z98.61 Coronary angioplasty status; Z79.82 Long term (current) use of aspirin
CPT/HCPCS: 36415; 71045; 71250; 80048; 80053; 80305; 82550; 82553; 82607; 83735; 83880; 84443; 84484; 85025; 93005; 93306; 93970; 97116; 97162; 97530; 99285; J1650; J1940; J2270

== ENCOUNTER 2020-01-16 12:27 | Inpatient (IN) | payer MEDICAID ==
[~2020-01-16] VITALS: Ht 185.4 cm; Wt 98.0 kg
[~2020-01-16 12:27] MED LIST changes: -COR12 PO; +FURO-151 MT; -FURO-151 PO; +POTA-79 MT
[2020-01-16] MEDS ORDERED: FENTANYL CITRATE/PF 50MCG/ML 5ML VIAL ONE (13:25)
[2020-01-16] MEDS ORDERED: LIDOCAINE HCL 1% 20ML VIAL (Pyxis) INJ ONE (13:26)
[2020-01-16] MEDS ORDERED: MIDAZOLAM HCL 5 MG/5 ML VIAL ONE (13:26)
[2020-01-16 14:42] LABS: HEMATOCRIT 43.1 % (42.0-52.0); HEMOGLOBIN 14.8 g/dL (14.0-18.0); MEAN CORPUSCULAR VOLUME 90.4 fL (80.0-94.0); RED BLOOD CELL COUNT 4.77 mill/uL (4.7-6.1); RED CELL DISTRIBUTION WIDTH 15.2 % (11.6-14.6)
[2020-01-16] MEDS ORDERED: MULT-1008 MT (14:51)
[2020-01-16 14:54] LABS: PARTIAL THROMBOPLASTIN TIME 28.6 sec (23.4-31.0); PROTHROMBIN TIME 10.3 sec (9.6-11.0)
[2020-01-16 14:55] LABS: PLATELET 141 x1000/uL (130-400)
[2020-01-16 17:30] VITALS: BP 149/92
[2020-01-16] MEDS ORDERED: ACETAMINOPHEN 325MG TABLET PO PRN (17:45)
[2020-01-16] MEDS ORDERED: ATROPINE SULFATE 1MG/10ML SYR IV PRN (17:45)
[2020-01-16 20:00] VITALS: BP 143/84
[2020-01-16] MEDS ORDERED: ATORVASTATIN CALCIUM 40MG TABLET PO SCH (21:00)
[2020-01-16 22:20] VITALS: BP 141/84
[2020-01-17] VITALS (9 sets, daily range): BP systolic 130–160; BP diastolic 32–93
[2020-01-17] MEDS ORDERED: FUROSEMIDE 40MG TABLET PO SCH (07:15)
[2020-01-17] MEDS ORDERED: ASPIRIN 81MG EC TABLET PO SCH (09:00)
[2020-01-17] MEDS ORDERED: APIXABAN 2.5 MG TABLET PO SCH (09:00)
[2020-01-17] MEDS ORDERED: POTASSIUM CHLORIDE 20MEQ TABLET SR PO SCH (09:00)
[2020-03-08] MEDS ORDERED: HYDR-4001 MT (17:12)
[2020-03-08] MEDS ORDERED: LOSA25TA3 PO (17:12)
[2020-03-08] MEDS ORDERED: AMLO5TAB88 PO (17:12)
[2020-03-08] MEDS ORDERED: AMOX-424 MT (17:18)
== END 2020-01-17 16:05 | disposition home or self-care (01) | DRG 192 ==
LOC: CCL 12:27 → 3WST 17:30
PROVIDERS: ADMIT Internal Medicine Clinical Cardiac Electrophysiology; ATTEND Internal Medicine Clinical Cardiac Electrophysiology
PROC: 4A023FZ Measurement of Cardiac Rhythm, Percutaneous Approach (ICD-10-PCS; principal; 2020-01-16)
PROC: 4A0234Z Measurement of Cardiac Electrical Activity, Percutaneous Approach (ICD-10-PCS; 2020-01-16)
DX: R55 Syncope and collapse (principal); I48.3 Typical atrial flutter; I25.5 Ischemic cardiomyopathy; I48.91 Unspecified atrial fibrillation; I25.10 Atherosclerotic heart disease of native coronary artery without angina pectoris; E78.5 Hyperlipidemia, unspecified; I13.0 Hypertensive heart and chronic kidney disease with heart failure and stage 1 through stage 4 chronic kidney disease, or unspecified chronic kidney disease; I50.22 Chronic systolic (congestive) heart failure; N18.30 Chronic kidney disease, stage 3 unspecified; Z20.828 Contact with and (suspected) exposure to other viral communicable diseases; Z98.61 Coronary angioplasty status; Z90.49 Acquired absence of other specified parts of digestive tract; Z87.891 Personal history of nicotine dependence; I25.2 Old myocardial infarction; Z90.5 Acquired absence of kidney; E87.8 Other disorders of electrolyte and fluid balance, not elsewhere classified
CPT/HCPCS: 36415; 80048; 85027; 87426; 93005; 93306; 93620; 93621; C1730; C1893; J1644; J2250; J3010; J3490

== ENCOUNTER 2021-03-14 21:32 | Inpatient (IN) | payer MEDICAID ==
[~2021-03-14] VITALS: Ht 172.7 cm; Wt 99.8 kg
[~2021-03-14 21:32] MED LIST changes: +AMLO5TAB88 PO; +AMOX-424 MT; +HYDR-4001 MT; +LOSA25TA3 PO; +MULT-1008 MT
[2021-03-14 22:41] LABS: BASOPHILS % 1.1 % (0.0-2.0); EOSINOPHILS % 1.9 % (0.0-5.0); HEMATOCRIT. 38.8 % (42.0-52.0); HEMOGLOBIN. 13.1 g/dL (14.0-18.0); LYMPHOCYTES % 9.3 % (20.0-50.0); MEAN CORPUSCULAR HEMOGLOBIN 29.8 pg (28.0-32.0); MEAN CORPUSCULAR VOLUME 88.4 fL (80.0-94.0); MEAN PLATELET VOLUME 8.4 fl (7.4-10.4); MONOCYTES % 11.7 % (2.0-8.0); PLATELET 205 x1000/uL (130-400); RED BLOOD CELL COUNT 4.39 mill/uL (4.7-6.1); RED CELL DISTRIBUTION WIDTH 15.1 % (11.6-14.6)
[2021-03-14 22:46] LABS: CHLORIDE 112 mEq/L (98-107)
[2021-03-15] MEDS ORDERED: VANCOMYCIN 1G PREMIX 200 ML IV ONE (01:15)
[2021-03-15] MEDS ORDERED: SODIUM CHLORIDE 0.9% 500 ML IV ONE (01:15)
[2021-03-15] MEDS ORDERED: PIPERACILLIN/TAZ 3.375G PREMIX 50 ML IV ONE (01:15)
[2021-03-15] MEDS ORDERED: KETOROLAC 30MG/ML VIAL IV ONE (02:15)
[2021-03-15] MEDS ORDERED: CARVEDILOL 3.125 MG TABLET PO ONE (03:00)
[2021-03-15] MEDS ORDERED: FUROSEMIDE 40MG/4ML VIAL IVP ONE (03:00)
[2021-03-15] MEDS ORDERED: APIXABAN 2.5 MG TABLET PO ONE (03:00)
[2021-03-15] MEDS ORDERED: LOSARTAN POTASSIUM 25 MG TABLET PO ONE (03:00)
[2021-03-15 10:00] VITALS: BP 134/71
[2021-03-15 11:13] VITALS: BP 134/71
[2021-03-15] MEDS ORDERED: ONDANSETRON HCL 4MG/2ML INJ IV PRN (11:15)
[2021-03-15] MEDS ORDERED: ACETAMINOPHEN 325MG TABLET PO PRN (11:15)
[2021-03-15] MEDS ORDERED: FUROSEMIDE 40MG/4ML VIAL IVP SCH (11:30)
[2021-03-15] MEDS ORDERED: CARV12.545 MT (11:33)
[2021-03-15] MEDS ORDERED: SACU1TAB MT (11:33)
[2021-03-15] MEDS ORDERED: AMIO150P5 IV (11:33)
[2021-03-15] MEDS ORDERED: MULT1TAB7 MT (11:33)
[2021-03-15] MEDS ORDERED: AMIO100T4 MT (11:33)
[2021-03-15 12:00] VITALS: BP 127/67
[2021-03-15] MEDS ORDERED: VANCOMYCIN 1GM PMX (XELLIA) 200 ML IV NR (13:00)
[2021-03-15] MEDS: HYDROCODONE/ACETAMINOPHEN 10/325MG TABLET PO PRN (13:16)
[2021-03-15] MEDS: LEVOFLOXACIN 500MG PREMIX 100 ML IV SCH (13:21)
[2021-03-15] MEDS: VANCOMYCIN 1.25GM PMX (XELLIA) 250 ML IV SCH (15:28)
[2021-03-15 16:00] VITALS: BP 129/73
[2021-03-15] MEDS: APIXABAN 2.5 MG TABLET PO SCH (16:25)
[2021-03-15] MEDS: CARVEDILOL 12.5MG TABLET PO SCH (16:25)
[2021-03-15 19:37] LABS: *AMPHETAMINES SCREEN URINE PRESUMTIVE POSITIVE (NEGATIVE); *BARBITURATES SCREEN URINE NEGATIVE (NEGATIVE); *COCAINE SCREEN URINE NEGATIVE (NEGATIVE); CANNABINOID URINE SCREEN NEGATIVE (NEGATIVE); OPIATES URINE SCREEN PRESUMTIVE POSITIVE (NEGATIVE); PHENCYCLIDINE URINE SCREEN NEGATIVE (NEGATIVE)
[2021-03-15 19:38] LABS: *BENZODIAZEPINES SCREEN URINE NEGATIVE (NEGATIVE); METHADONE URINE SCREEN NEGATIVE (NEGATIVE)
[2021-03-15 20:00] VITALS: BP 102/63
[2021-03-15] MEDS: ATORVASTATIN CALCIUM 40MG TABLET PO SCH (21:04)
[2021-03-16] VITALS: BP 107/57
[2021-03-16 04:00] VITALS: BP 101/50
[2021-03-16] MEDS: HYDROCODONE/ACETAMINOPHEN 10/325MG TABLET PO PRN ×2 (07:24→13:32)
[2021-03-16 08:00] VITALS: BP 113/62
[2021-03-16] MEDS: ASPIRIN 81MG TABLET PO SCH (08:24)
[2021-03-16] MEDS: POTASSIUM CHLORIDE 20MEQ TABLET SR PO SCH (08:24)
[2021-03-16] MEDS: APIXABAN 2.5 MG TABLET PO SCH ×2 (08:24→16:18)
[2021-03-16] MEDS: FUROSEMIDE 40MG TABLET PO SCH (08:24)
[2021-03-16] MEDS: AMIODARONE HCL 200 MG TABLET PO SCH (08:24)
[2021-03-16] MEDS: CARVEDILOL 12.5MG TABLET PO SCH ×2 (08:25→16:18)
[2021-03-16 12:00] VITALS: BP 101/56
[2021-03-16] MEDS: LEVOFLOXACIN 500MG PREMIX 100 ML IV SCH (13:31)
[2021-03-16] MEDS: VANCOMYCIN 1.25GM PMX (XELLIA) 250 ML IV SCH (15:47)
[2021-03-16 16:00] VITALS: BP 104/62
[2021-03-16] MEDS ORDERED: *PATIENT'S OWN MEDICATION STORAGE XX SCH (16:15)
[2021-03-16 20:00] VITALS: BP 103/60
[2021-03-16] MEDS: ATORVASTATIN CALCIUM 40MG TABLET PO SCH (20:14)
[2021-03-17] VITALS: BP 113/65
[2021-03-17 04:00] VITALS: BP 121/70
[2021-03-17 08:00] VITALS: BP 92/59
[2021-03-17] MEDS: POTASSIUM CHLORIDE 20MEQ TABLET SR PO SCH (08:42)
[2021-03-17] MEDS: ASPIRIN 81MG TABLET PO SCH (08:42)
[2021-03-17] MEDS: FUROSEMIDE 40MG TABLET PO SCH (08:43)
[2021-03-17] MEDS: APIXABAN 2.5 MG TABLET PO SCH ×2 (08:43→17:42)
[2021-03-17] MEDS: AMIODARONE HCL 200 MG TABLET PO SCH (08:43)
[2021-03-17] MEDS: CARVEDILOL 12.5MG TABLET PO SCH ×2 (08:43→17:42)
[2021-03-17] MEDS: HYDROCODONE/ACETAMINOPHEN 10/325MG TABLET PO PRN (08:59)
[2021-03-17 12:00] VITALS: BP 100/59
[2021-03-17] MEDS: LEVOFLOXACIN 500MG TABLET PO SCH (13:13)
[2021-03-17] MEDS ORDERED: IOHEXOL-350 100 ML BOTTLE ONE (13:32)
[2021-03-17] MEDS: VANCOMYCIN 1.25GM PMX (XELLIA) 250 ML IV SCH (15:00)
[2021-03-17 16:00] VITALS: BP 124/96
[2021-03-17] MEDS ORDERED: CLIN300C12 MT (17:09)
[2021-03-17 20:00] VITALS: BP 97/53
[2021-03-17] MEDS: ATORVASTATIN CALCIUM 40MG TABLET PO SCH (20:30)
[2021-03-18] VITALS: BP 116/56
[2021-03-18 04:00] VITALS: BP 97/52
[2021-03-18 08:00] VITALS: BP 115/61
[2021-03-18] MEDS: CARVEDILOL 12.5MG TABLET PO SCH (08:57)
[2021-03-18] MEDS: APIXABAN 2.5 MG TABLET PO SCH (08:57)
[2021-03-18] MEDS: ASPIRIN 81MG TABLET PO SCH (08:57)
[2021-03-18] MEDS: AMIODARONE HCL 200 MG TABLET PO SCH (08:57)
[2021-03-18] MEDS: POTASSIUM CHLORIDE 20MEQ TABLET SR PO SCH (08:58)
[2021-03-18] MEDS: FUROSEMIDE 40MG TABLET PO SCH (08:59)
[2021-03-18] MEDS: LEVOFLOXACIN 500MG TABLET PO SCH (11:45)
[2021-03-18 12:00] VITALS: BP 110/59
[2021-03-18 13:33] VITALS: BP 110/58
[2021-03-18] MEDS ORDERED: VANCOMYCIN 1GM PMX (XELLIA) 200 ML IV SCH (16:00)
== END 2021-03-18 14:50 | disposition home health service (06) | DRG 383 ==
LOC: ER 21:32 → MICUSO 03-15 03:42 → 8WST 03-15 09:40
PROVIDERS: ADMIT Internal Medicine; ATTEND Internal Medicine
DX: L03.115 Cellulitis of right lower limb (principal); N17.0 Acute kidney failure with tubular necrosis; J96.01 Acute respiratory failure with hypoxia; I50.9 Heart failure, unspecified; I13.0 Hypertensive heart and chronic kidney disease with heart failure and stage 1 through stage 4 chronic kidney disease, or unspecified chronic kidney disease; E44.0 Moderate protein-calorie malnutrition; E11.22 Type 2 diabetes mellitus with diabetic chronic kidney disease; E11.51 Type 2 diabetes mellitus with diabetic peripheral angiopathy without gangrene; E87.8 Other disorders of electrolyte and fluid balance, not elsewhere classified; E78.00 Pure hypercholesterolemia, unspecified; L03.116 Cellulitis of left lower limb; E66.9 Obesity, unspecified; N18.9 Chronic kidney disease, unspecified; Z20.822 Contact with and (suspected) exposure to COVID-19; Z79.899 Other long term (current) drug therapy; Z79.82 Long term (current) use of aspirin; I25.2 Old myocardial infarction; Z90.49 Acquired absence of other specified parts of digestive tract; Z82.49 Family history of ischemic heart disease and other diseases of the circulatory system; Z87.891 Personal history of nicotine dependence; Z68.33 Body mass index [BMI] 33.0-33.9, adult
CPT/HCPCS: 36415; 71045; 75635; 80048; 80053; 80202; 80305; 82962; 83880; 84484; 85025; 87426; 93005; 93923; 93970; 97022; 97162; 99285; A6261; J1885; J1940; J1956; J2543; J3370; J7040; Q9967

== ENCOUNTER 2021-12-30 20:00 | Emergency (ER) | payer MEDICAID ==
[~2021-12-30] VITALS: Ht 182.9 cm; Wt 101.0 kg
[~2021-12-30 20:00] MED LIST changes: +AMIO100T4 MT; -AMLO5TAB88 PO; -AMOX-424 MT; +CARV12.545 MT; +CLIN-194 MT; -HYDR-4001 MT; -LOSA25TA3 PO; -MULT-1008 MT; +MULT1TAB7 MT; +SACU1TAB MT
[2021-12-31] MEDS ORDERED: SODIUM CHLORIDE 0.9% 1000ML BAG (SEPSIS BOLUS) IV ONE
[2021-12-31 03:26] LABS: HEMATOCRIT. 39.7 % (42.0-52.0); HEMOGLOBIN. 13.3 g/dL (14.0-18.0); MEAN CORPUSCULAR HEMOGLOBIN 30.3 pg (28.0-32.0); MEAN CORPUSCULAR VOLUME 90.3 fL (80.0-94.0); MEAN PLATELET VOLUME 8.9 fl (7.4-10.4); PLATELET 138 x1000/uL (130-400); RED CELL DISTRIBUTION WIDTH 14.2 % (11.6-14.6)
[2021-12-31 03:36] LABS: CHLORIDE 115 mEq/L (98-107)
[2021-12-31 03:45] LABS: ETHANOL BLOOD < 10 mg/dL
[2021-12-31] MEDS ORDERED: CEFTRIAXONE 1 G PREMIX 50 ML IV ONE (05:00)
[2021-12-31 06:15] LABS: CLARITY URINE CLEAR (CLEAR); COLOR URINE YELLOW (YELLOW); KETONES URINE NEGATIVE (NEGATIVE); LEUKOCYTE ESTERASE URINE NEGATIVE (NEGATIVE); NITRITE URINE NEGATIVE (NEGATIVE); OCCULT BLOOD URINE NEGATIVE (NEGATIVE); PROTEIN URINE NEGATIVE (NEGATIVE); SPECIFIC GRAVITY URINE 1.014 (1.005-1.030); UROBILINOGEN URINE 0.2 E.U./dL (0.2-1.0)
[2021-12-31 06:31] VITALS: BP 93/47
[2021-12-31 07:26] LABS: *AMPHETAMINES SCREEN URINE NEGATIVE (NEGATIVE); *BARBITURATES SCREEN URINE NEGATIVE (NEGATIVE); *BENZODIAZEPINES SCREEN URINE NEGATIVE (NEGATIVE); *COCAINE SCREEN URINE NEGATIVE (NEGATIVE); CANNABINOID URINE SCREEN NEGATIVE (NEGATIVE); METHADONE URINE SCREEN NEGATIVE (NEGATIVE); OPIATES URINE SCREEN NEGATIVE (NEGATIVE); PHENCYCLIDINE URINE SCREEN NEGATIVE (NEGATIVE)
[2021-12-31 07:48] LABS: ATYPICAL LYMPHOCYTES 2; PLATELET ESTIMATE NORMAL
== END 2021-12-31 09:23 | disposition left against medical advice (07) ==
LOC: ER 20:14 → EDBEDREQ 12-31 07:09 → ER 12-31 09:23 → CANBEDREQ 12-31 21:27
DX: I95.9 Hypotension, unspecified (principal); E78.00 Pure hypercholesterolemia, unspecified; I10 Essential (primary) hypertension; I25.2 Old myocardial infarction; Z85.9 Personal history of malignant neoplasm, unspecified; Z79.82 Long term (current) use of aspirin; Z90.49 Acquired absence of other specified parts of digestive tract; Z98.62 Peripheral vascular angioplasty status; Z98.890 Other specified postprocedural states
CPT/HCPCS: 36415; 71045; 74176; 80053; 80305; 80320; 81003; 83605; 83690; 84484; 85025; 87040; 93005; 96361; 96365; 96366; 99291; J0696; J7030; Z7610; G0480

== ENCOUNTER 2022-03-17 19:08 | Emergency (ER) | payer MEDICAID, OTHER ==
[~2022-03-17] VITALS: Ht 172.7 cm; Wt 87.0 kg
[2022-03-17 19:14] VITALS: BP 131/70
== END 2022-03-18 | disposition left against medical advice (07) ==
LOC: ER 19:08
DX: Z53.21 Procedure and treatment not carried out due to patient leaving prior to being seen by health care provider (principal); E78.00 Pure hypercholesterolemia, unspecified; I10 Essential (primary) hypertension; I25.2 Old myocardial infarction; Z85.9 Personal history of malignant neoplasm, unspecified; Z90.49 Acquired absence of other specified parts of digestive tract; Z98.62 Peripheral vascular angioplasty status; Z98.890 Other specified postprocedural states

== ENCOUNTER 2022-03-18 07:09 | Inpatient (IN) | payer MEDICAID, OTHER ==
[~2022-03-18] VITALS: Ht 182.9 cm; Wt 99.8 kg
[2022-03-18 10:08] LABS: BASOPHILS % 0.3 % (0.0-2.0); EOSINOPHILS % 0.5 % (0.0-5.0); HEMATOCRIT. 42.5 % (42.0-52.0); HEMOGLOBIN. 14.5 g/dL (14.0-18.0); LYMPHOCYTES % 7.7 % (20.0-50.0); MEAN CORPUSCULAR HEMOGLOBIN 30.2 pg (28.0-32.0); MEAN CORPUSCULAR VOLUME 88.7 fL (80.0-94.0); MEAN PLATELET VOLUME 8.7 fl (7.4-10.4); NEUTROPHILS % 79.5 % (40.0-76.0); PLATELET 209 x1000/uL (130-400); RED BLOOD CELL COUNT 4.79 mill/uL (4.7-6.1)
[2022-03-18 10:16] LABS: CHLORIDE 106 mEq/L (98-107)
[2022-03-18] MEDS ORDERED: ACETAMINOPHEN 325MG TABLET PO PRN (19:30)
[2022-03-18] MEDS ORDERED: DOCUSATE SODIUM 100MG CAPSULE PO PRN (19:30)
[2022-03-18] MEDS: HYDROCODONE/ACETAMINOPHEN 5/325MG TABLET PO PRN (19:48)
[2022-03-18 20:42] LABS: CLARITY URINE CLEAR (CLEAR); COLOR URINE DARK YELLOW (YELLOW); KETONES URINE TRACE (NEGATIVE); LEUKOCYTE ESTERASE URINE NEGATIVE (NEGATIVE); NITRITE URINE NEGATIVE (NEGATIVE); OCCULT BLOOD URINE TRACE (NEGATIVE); PROTEIN URINE 2+ (NEGATIVE); SPECIFIC GRAVITY URINE 1.022 (1.005-1.030)
[2022-03-18 22:30] VITALS: BP 110/71
[2022-03-18] MEDS ORDERED: NALOXONE HCL 0.4MG/ML VIAL IV PRN (23:30)
[2022-03-18 23:37] VITALS: BP 110/71
[2022-03-19] VITALS: BP 119/74
[2022-03-19] MEDS: HYDROCODONE/ACETAMINOPHEN 5/325MG TABLET PO PRN ×2 (03:33→23:34)
[2022-03-19 04:00] VITALS: BP 104/55
[2022-03-19 06:09] LABS: BASOPHILS % 0.7 % (0.0-2.0); EOSINOPHILS % 0.6 % (0.0-5.0); HEMATOCRIT. 39.3 % (42.0-52.0); HEMOGLOBIN. 13.3 g/dL (14.0-18.0); LYMPHOCYTES % 8.9 % (20.0-50.0); MEAN CORPUSCULAR HEMOGLOBIN 30.1 pg (28.0-32.0); MEAN CORPUSCULAR VOLUME 88.8 fL (80.0-94.0); MEAN PLATELET VOLUME 8.9 fl (7.4-10.4); MONOCYTES % 10.5 % (2.0-8.0); NEUTROPHILS % 79.3 % (40.0-76.0); PLATELET 171 x1000/uL (130-400); RED BLOOD CELL COUNT 4.42 mill/uL (4.7-6.1); RED CELL DISTRIBUTION WIDTH 14.5 % (11.6-14.6)
[2022-03-19 06:11] LABS: CHLORIDE 107 mEq/L (98-107)
[2022-03-19 06:28] LABS: HDL CHOLESTEROL 35 mg/dL (40-59); LDL CHOLESTEROL 69 mg/dL (5-100)
[2022-03-19 08:00] VITALS: BP 103/61
[2022-03-19] MEDS: CARVEDILOL 12.5MG TABLET PO SCH ×2 (09:00→17:00)
[2022-03-19] MEDS: FOLIC ACID/VITAMIN B COMP W-C TABLET PO SCH (09:11)
[2022-03-19] MEDS: ASPIRIN 81MG EC TABLET PO SCH (09:13)
[2022-03-19] MEDS: APIXABAN 2.5 MG TABLET PO SCH ×2 (09:13→17:07)
[2022-03-19 12:00] VITALS: BP 99/60
[2022-03-19 16:00] VITALS: BP 108/66
[2022-03-19 20:00] VITALS: BP 87/40
[2022-03-19] MEDS: COLCHICINE 0.6MG TABLET PO SCH (20:23)
[2022-03-20] VITALS: BP 84/42
[2022-03-20 04:00] VITALS: BP 96/53
[2022-03-20 06:13] LABS: PROTHROMBIN TIME 11.1 sec (9.6-11.0)
[2022-03-20 06:26] LABS: BASOPHILS % 0.8 % (0.0-2.0); EOSINOPHILS % 1.5 % (0.0-5.0); HEMATOCRIT. 37.1 % (42.0-52.0); HEMOGLOBIN. 12.6 g/dL (14.0-18.0); MEAN CORPUSCULAR HEMOGLOBIN 29.8 pg (28.0-32.0); MEAN CORPUSCULAR VOLUME 87.9 fL (80.0-94.0); MEAN PLATELET VOLUME 8.8 fl (7.4-10.4); MONOCYTES % 8.4 % (2.0-8.0); NEUTROPHILS % 78.3 % (40.0-76.0); PLATELET 185 x1000/uL (130-400); RED BLOOD CELL COUNT 4.22 mill/uL (4.7-6.1)
[2022-03-20 08:00] VITALS: BP 111/63
[2022-03-20 08:32] LABS: CHLORIDE 107 mEq/L (98-107)
[2022-03-20] MEDS: CARVEDILOL 12.5MG TABLET PO SCH ×2 (09:00→16:49)
[2022-03-20] MEDS: APIXABAN 2.5 MG TABLET PO SCH ×2 (09:11→16:49)
[2022-03-20] MEDS: ASPIRIN 81MG EC TABLET PO SCH (09:11)
[2022-03-20] MEDS: FOLIC ACID/VITAMIN B COMP W-C TABLET PO SCH (09:22)
[2022-03-20] MEDS: COLCHICINE 0.6MG TABLET PO SCH ×2 (09:22→22:02)
[2022-03-20 12:00] VITALS: BP 115/55
[2022-03-20] MEDS: HYDROCODONE/ACETAMINOPHEN 5/325MG TABLET PO PRN ×2 (13:25→22:54)
[2022-03-20] MEDS: FUROSEMIDE 40MG/4ML VIAL IVP SCH (14:22)
[2022-03-20 16:00] VITALS: BP 108/50
[2022-03-20 20:00] VITALS: BP 87/44
[2022-03-21] VITALS: BP 83/41
[2022-03-21 04:00] VITALS: BP 93/51
[2022-03-21 06:50] LABS: BASOPHILS % 0.9 % (0.0-2.0); EOSINOPHILS % 2.9 % (0.0-5.0); HEMATOCRIT. 39.1 % (42.0-52.0); HEMOGLOBIN. 13.1 g/dL (14.0-18.0); LYMPHOCYTES % 11.7 % (20.0-50.0); MEAN CORPUSCULAR HEMOGLOBIN 29.7 pg (28.0-32.0); MEAN CORPUSCULAR VOLUME 88.5 fL (80.0-94.0); MEAN PLATELET VOLUME 8.7 fl (7.4-10.4); MONOCYTES % 9.7 % (2.0-8.0); NEUTROPHILS % 74.8 % (40.0-76.0); PLATELET 199 x1000/uL (130-400); RED BLOOD CELL COUNT 4.42 mill/uL (4.7-6.1); RED CELL DISTRIBUTION WIDTH 14.3 % (11.6-14.6)
[2022-03-21 07:18] LABS: PHOSPHORUS 3.5 mg/dL (2.5-4.9)
[2022-03-21 08:00] VITALS: BP 98/57
[2022-03-21] MEDS: CARVEDILOL 12.5MG TABLET PO SCH ×2 (09:00→17:00)
[2022-03-21] MEDS: FOLIC ACID/VITAMIN B COMP W-C TABLET PO SCH (09:30)
[2022-03-21] MEDS: FUROSEMIDE 40MG/4ML VIAL IVP SCH (09:30)
[2022-03-21] MEDS: ASPIRIN 81MG EC TABLET PO SCH (09:30)
[2022-03-21] MEDS: COLCHICINE 0.6MG TABLET PO SCH (09:30)
[2022-03-21] MEDS: APIXABAN 2.5 MG TABLET PO SCH ×2 (09:30→17:36)
[2022-03-21] MEDS: HYDROCODONE/ACETAMINOPHEN 5/325MG TABLET PO PRN (09:30)
[2022-03-21] MEDS ORDERED: POTA-79 MT (10:54)
[2022-03-21] MEDS ORDERED: FURO-151 MT (10:54)
[2022-03-21] MEDS ORDERED: SACU1TAB MT (10:54)
[2022-03-21] MEDS ORDERED: APIX2.5T PO (10:54)
[2022-03-21] MEDS ORDERED: CARV12.545 MT (10:55)
[2022-03-21 11:23] VITALS: BP 98/57
[2022-03-21 12:00] VITALS: BP 96/55
[2022-03-21 16:00] VITALS: BP 92/52
== END 2022-03-21 19:24 | disposition home health service (06) | DRG 383 ==
LOC: ER 07:09 → MICUSO 13:08 → EDBEDREQ 13:21 → EDBEDREQTM 13:21 → 7EST 23:14
PROVIDERS: ADMIT Internal Medicine; ATTEND Internal Medicine
PROC: 0JBM0ZZ Excision of Left Upper Leg Subcutaneous Tissue and Fascia, Open Approach (ICD-10-PCS; principal; 2022-03-20)
PROC: 0JBL0ZZ Excision of Right Upper Leg Subcutaneous Tissue and Fascia, Open Approach (ICD-10-PCS; 2022-03-20)
DX: L03.115 Cellulitis of right lower limb (principal); E44.0 Moderate protein-calorie malnutrition; I42.0 Dilated cardiomyopathy; I48.92 Unspecified atrial flutter; I13.0 Hypertensive heart and chronic kidney disease with heart failure and stage 1 through stage 4 chronic kidney disease, or unspecified chronic kidney disease; I50.9 Heart failure, unspecified; E11.22 Type 2 diabetes mellitus with diabetic chronic kidney disease; I48.91 Unspecified atrial fibrillation; E78.00 Pure hypercholesterolemia, unspecified; L03.116 Cellulitis of left lower limb; E78.5 Hyperlipidemia, unspecified; J44.9 Chronic obstructive pulmonary disease, unspecified; I25.10 Atherosclerotic heart disease of native coronary artery without angina pectoris; N20.2 Calculus of kidney with calculus of ureter; I70.0 Atherosclerosis of aorta; I25.5 Ischemic cardiomyopathy; N18.30 Chronic kidney disease, stage 3 unspecified; Z68.29 Body mass index [BMI] 29.0-29.9, adult; Z98.61 Coronary angioplasty status; Z90.49 Acquired absence of other specified parts of digestive tract; Z90.5 Acquired absence of kidney; Z82.49 Family history of ischemic heart disease and other diseases of the circulatory system; I25.2 Old myocardial infarction; Z87.891 Personal history of nicotine dependence; Z85.528 Personal history of other malignant neoplasm of kidney; Z79.899 Other long term (current) drug therapy; Z79.01 Long term (current) use of anticoagulants
CPT/HCPCS: 36415; 71045; 73130; 74176; 76700; 80048; 80053; 80061; 81003; 83735; 83880; 84100; 84443; 84550; 85025; 93005; 93970; 97162; 99285; J1940

== ENCOUNTER 2025-01-14 05:20 | Emergency (ER) | payer MEDICAID ==
[~2025-01-14] VITALS: Ht 182.9 cm; Wt 100.0 kg
[~2025-01-14 05:20] MED LIST changes: +AMOX1TAB15 MT; +BACL-141 MT; -CLIN-194 MT; +POTA-354 MT; -POTA-79 MT; +SULF1TAB48 MT
[2025-01-14 05:30] VITALS: O2SAT 99
[2025-01-14 08:07] VITALS: BP 157/94; PULSE 70; RESP 16; TEMP 36.7; O2SAT 95
== END 2025-01-14 08:08 | disposition home or self-care (01) ==
LOC: ER 05:20
DX: R04.0 Epistaxis (principal); F17.200 Nicotine dependence, unspecified, uncomplicated; I10 Essential (primary) hypertension
CPT/HCPCS: 30901; 99284; Z7610 ×3; 99283; A4606